=== PATIENT | female | born 1980 | race Two or more races ===

== ENCOUNTER → 2024-12-05 | Outpatient (CLI) | payer BC, MEDICAID, SELFPAY ==
--- NOTE | 2024-12-05 15:15 | XR_ITS ---
Examination: Breast ultrasound, unilateral, left complete Date and time of exam: December 05, 2024 1538 hours INDICATIONS: Mammogram May 10, 2022 15 mm circumscribed nodule inner right breast 19 mm, 18 mm nipple level left breast mass Technique: Real-time rosen scale ultrasonographic imaging performed left breast including all 4 quadrants as well as nipple retroareolar and axillary region. Findings: 4:00 cyst 3.6 x 3.3 cm 5:00 cyst 2.0 x 1.9 cm 9:00 cyst 8 x 7 mm No solid nodules Smaller cysts IMPRESSION: BI-RADS Category 2: Benign findings, including benign cyst likely accounting for the mammographic abnormality
--- NOTE | 2024-12-05 15:45 | XR_ITS ---
Examination: Diagnostic digital mammography, unilateral, left Computer aided detection 3-D breast Tomosynthesis, unilateral Date and time of exam: December 05, 2024 1554 hours INDICATIONS: Mammogram May 10, 2022 19 mm 18 mm partially circumscribed masses outer left breast on the CC view left breast May 10, 2022, patient states left breast lumps several years Technique: Nonmagnified MLO, CC views of the left breast have been obtained, reconstructed from 3-D Tomosynthesis images. R2 computer aided detection program utilized for evaluation of suspicious masses and/or abnormal calcifications. 3-D Tomosynthesis images obtained. Findings: The breast is heterogeneously dense, which may obscure small masses 27 mm circumscribed nodule outer left breast at the palpable marker site, corresponding to benign cysts described on left breast sonogram today Impression: BI-RADS category 2: Benign findings Return to yearly follow-up mammography
== END | disposition home or self-care (01) ==
PROVIDERS: PCP Internal Medicine; Referring Provider Internal Medicine; Visit Provider Internal Medicine
DX: R92.322 Mammographic fibroglandular density, left breast (principal); N60.02 Solitary cyst of left breast
CPT/HCPCS: 76641; 77061; 77065; G0279